=== PATIENT | female | born 1950 | race Caucasian/White ===

== ENCOUNTER 2021-02-24 11:25 | Emergency (ER) | payer OTHER ==
[~2021-02-24] VITALS: Ht 165.1 cm; Wt 59.0 kg
[2021-02-24 11:34] VITALS: BP_SYST 115
[2021-02-24] MEDS ORDERED: traMADol HCL HCL 50 MG TABLET (ULTRAM) PO ONE (13:30)
[2021-02-24] MEDS ORDERED: NAPR-688 PO (13:42)
[2021-02-24] MEDS ORDERED: SOM350 PO (13:42)
[2021-02-24 13:49] VITALS: BP_SYST 139
== END 2021-02-24 13:49 | disposition home or self-care (01) ==
LOC: SED 11:25
DX: S00.31XA Abrasion of nose, initial encounter (principal); Z88.1 Allergy status to other antibiotic agents; W18.39XA Other fall on same level, initial encounter; Y93.89 Activity, other specified; Y92.89 Other specified places as the place of occurrence of the external cause; Y99.8 Other external cause status
CPT/HCPCS: 70450-TC; 76376; 99284